=== PATIENT | male | born 1995 | race Caucasian/White ===

== ENCOUNTER 2019-04-10 11:34 | Emergency (ER) | payer MEDICAID, SELFPAY ==
[2019-04-10 11:35] VITALS: BP 126/83; PULSE 95; RESP 17; TEMP 36.7; O2SAT 100; BMI 20.5
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
--- NOTE | 2019-04-10 13:06 | ED.DEP ---
ED Disposition - Plan for ED Patient: Disposition: Home or Assisted Living Instructions: LACERATION, Scalp Referrals: Yousuf Hannah MD [Primary Care Provider] - 10 Day for suture removal Additional Instructions: Ice to decrease pain and swelling. Tylenol and Motrin for pain. Wash carefully and do not scrub hard against the willy you may pull them out. The willy should be removed in about 10 days. Return if severe headache or vomiting. You may have a mild headache or even mild nausea from the head injury.
== END 2019-04-10 13:17 | disposition home or self-care (01) ==
PROVIDERS: Emergency Provider Emergency Medicine; Family Provider Family Medicine; PCP Family Medicine
DX: S01.01XA Laceration without foreign body of scalp, initial encounter (principal); W20.8XXA Other cause of strike by thrown, projected or falling object, initial encounter; Y93.H1 Activity, digging, shoveling and raking; Y92.89 Other specified places as the place of occurrence of the external cause; Y99.8 Other external cause status
CPT/HCPCS: 12002; 99284

== ENCOUNTER 2020-03-27 14:56 | Emergency (ER) | payer MEDICAID, SELFPAY ==
[2020-03-27 14:57] VITALS: BP 130/76; PULSE 93; RESP 18; TEMP 36; BMI 19.3
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
--- NOTE | 2020-03-27 15:09 | CT_ITS ---
STUDY: CT FACIAL BONES WITHOUT CONTRAST REASON FOR EXAM: Male, 24 years old. Injury facial pain RADIATION DOSAGE (If Supplied By Facility): CTDIvol = ( 29.38 ) mGy, DLP = ( 591.53 ) mGycm TECHNIQUE: The patient was scanned in a multi detector CT scanner. Sagittal and coronal images were reconstructed. Individualized dose optimization techniques were used for this CT. COMPARISON: None. FINDINGS: Skull base is intact. Facial bones are intact. Orbits are normal. Paranasal sinuses are clear. Soft tissues of the face are unremarkable. Upper airway is patent. CT/Sinus/Facial Bone IMPRESSION: 1. No acute facial fracture. Normal CT face. Electronically Signed: Kisha Dalton, at 15:24 EST Tel , Service support ,
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
[2020-03-27 16:02] VITALS: RESP 15
--- NOTE | 2020-03-27 19:12 | ED.RN ---
patient called in asking about pain medicine. Dr. Cisse to write prescription at this time for patient to roll picker. Patient made aware
== END 2020-03-27 16:03 | disposition home or self-care (01) ==
LOC: ED 15:33
PROVIDERS: Emergency Provider Emergency Medicine; PCP Family Medicine
DX: S82.045A Nondisplaced comminuted fracture of left patella, initial encounter for closed fracture (principal); S00.83XA Contusion of other part of head, initial encounter; W21.89XA Striking against or struck by other sports equipment, initial encounter; Y93.89 Activity, other specified; Y92.830 Public park as the place of occurrence of the external cause; Y99.8 Other external cause status
CPT/HCPCS: 70486; 73562; 99284

== ENCOUNTER → 2020-03-31 17:46 | Outpatient (CLI) | payer MEDICAID, SELFPAY ==
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
--- NOTE | 2020-03-31 17:50 | CT_ITS ---
STUDY: CT LEFT KNEE WITHOUT CONTRAST REASON FOR EXAM: Male, 24 years old. Left knee injury 4 days ago, patella fracture. 3D recons performed. RADIATION DOSAGE (If Supplied By Facility): CTDIvol = ( 15.35 ) mGy, DLP = ( 499.60 ) mGycm TECHNIQUE: Transaxial CT imaging of the knee was performed. Coronal and sagittal images were reformatted. Individualized dose optimization techniques were used for this CT. COMPARISON: None. FINDINGS: Normal medial femoral condyle and medial tibial plateau. There is preservation of the articular joint space of the medial knee compartment. Normal lateral femoral condyle and lateral tibial plateau. There is preservation of the articular joint space of the lateral knee compartment. There is an acute comminuted inferior lateral patella facet fracture with mild separation of fracture fragments Normal proximal tibiofibular articulation. There is a hemorrhagic suprapatella bursal and joint effusion The quadriceps tendon is grossly normal. The patellar tendon is grossly normal. Normal Hoffa''s fat pad. Diffuse prepatellar soft tissue swelling is observed.. CT/Coronals Sag Multi Obl 3-D Rec IMPRESSION: Acute comminuted inferior lateral patella facet fracture with mild separation of fracture fragments and associated hemorrhagic effusion Electronically Signed: Rehan Medina MD at 20:07 EST , Service support ,
== END ==
PROVIDERS: PCP Family Medicine; Referring Provider Orthopaedic Surgery; Visit Provider Orthopaedic Surgery
DX: S82.002A Unspecified fracture of left patella, initial encounter for closed fracture (principal)
CPT/HCPCS: 73700; 76377

== ENCOUNTER 2020-04-06 11:31 | Day surgery (SDC) | payer MEDICAID, SELFPAY ==
[2020-04-06] VITALS (8 sets, daily range): BP systolic 122–144; BP diastolic 64–95; PULSE 96–122; RESP 16–18; TEMP 36.7–38; O2SAT 97–100; BMI 19.3
--- NOTE | 2020-04-06 13:07 | RAD_ITS ---
STUDY: X-RAY - LEFT KNEE REASON FOR EXAM: ORIF left patella. TECHNIQUE: 4 fluoroscopic images of the knee. COMPARISON: Radiographs 03/19/2020. FINDINGS: There are 4 orthopedic screws transfixing a patellar fracture in anatomical alignment and position. 91.7 seconds of fluoroscopy time was used. Electronically Signed: Yang Pineda MD at 15:30 EST Tel , Service support , RAD/Knee 1 or 2 Views
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
--- NOTE | 2020-04-06 13:15 | DCINST_ITS ---
Discharge Diet: No Restrictions - knee locked in extension, ttwb left leg, ankle pumps, ice knee, elevate toes above nose, call with concerns, Discharge Activity: May Not Drive May shower in (days): 1 Ice area for (Minutes): 20 - Every hour while awake. Weight Bearing Status: Weight bearing as tolerated Keep extremity elevated above heart level: Operative Extremity Call your doctor if your incision/area has: Continuous Slow Oozing, Sudden Increased Bleeding, Increased Pain/ Swelling, Increased Redness, Foul Smelling Discharge Call your doctor if you observe: Fever of 101 or Higher, Coldness, Increased Pain, Numbness or Tingling, Change in Color, Calf discomfort Allergies/Adverse Reactions: Allergies Penicillins Allergy (Verified 04/06/20 11:57) Anaphylaxis Sulfa (Sulfonamide Antibiotics) Allergy (Verified 04/06/20 11:57) Rash Medications to take at Discharge Ibuprofen [Motrin] 400 mg PO Q4H PRN PRN 04/05/20 Oxycodone HCl/Acetaminophen [Percocet 5-325 mg Tablet] 1 ea PO PRN PRN 04/05/20 Primary Care Physician: Yousuf Hannah MD [Primary Care Provider] - Test Results: Test results from this visit will be discussed in further detail at your follow- up appointment, if applicable. Please Follow Up With: Nicci Arcos, - [phone]
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
== END 2020-04-06 17:32 | disposition home or self-care (01) ==
LOC: SDC 11:32 → AC 11:33
PROVIDERS: PCP Family Medicine; Referring Provider Orthopaedic Surgery; Visit Provider Orthopaedic Surgery
PROC: (CPT 27524; principal; 2020-04-06 12:45)
DX: S82.045A Nondisplaced comminuted fracture of left patella, initial encounter for closed fracture (principal); Z20.828 Contact with and (suspected) exposure to other viral communicable diseases; V09.9XXA Pedestrian injured in unspecified transport accident, initial encounter; Y93.51 Activity, roller skating (inline) and skateboarding; Y92.89 Other specified places as the place of occurrence of the external cause; Y99.8 Other external cause status
CPT/HCPCS: 27524; 73560; 76000; 87426; C1713; C9803; J2405

== ENCOUNTER 2021-02-21 12:38 | Emergency (ER) | payer MEDICAID, SELFPAY ==
[2021-02-21 12:39] VITALS: BP 124/85; PULSE 106; RESP 20; TEMP 36.2; O2SAT 100; BMI 19.1
[2021-02-21 12:53] VITALS: BP 124/85; PULSE 106; RESP 20; TEMP 36.2; O2SAT 100
--- NOTE | 2021-02-21 13:37 | EX.ED.DYSGE1 ---
HPI History of Present Illness Chief Complaint: Flank Pain Informant: patient Onset/Context/Timing Onset: Today Context: Sudden Onset Timing: Continuous Quality: Sharp Location: Left flank Worsened by: Certain movements Relieved by: Bending over Narrative Narrative: Patient presents with left flank and low back pain that began today. Patient states it began rather suddenly while he was driving. Patient states his pain is sharp. Patient states it is localized to the left flank area. Patient states it is worse with certain movements but better when he bends over. Patient denies any dysuria or hematuria. Patient states he made himself vomit earlier today but did not really have any nausea. Patient does admit to some dysuria. Patient also admits to some subjective chills but denies any fevers. PFSH PFSH Medical History no medical history no medical history Home Medications NK 02/21/21 [History Last Taken Unknown] Allergy/AdvReac Type Severity Reaction Status Date / Time Penicillins Allergy Anaphylaxis Verified 02/21/21 13:19 Sulfa (Sulfonamide Allergy Rash Verified 02/21/21 13:19 Antibiotics) Surgical History (Updated 02/21/21 @ 13:[address] Davion Wilson DO) S/P ORIF (open reduction internal fixation) fracture Surgical History no surgical history Social History Smoking Status: Never smoker ROS ROS ED Constitutional Constitutional ED: Reports chills and subjective; Denies fever(s) Eyes Eyes: Denies blurry vision or change in vision ENT ENT ED: Denies rhinorrhea or sore throat Cardiovascular Cardiovascular: Denies chest pain or palpitations Respiratory/Chest Respiratory/Chest: Denies cough or dyspnea Gastrointestinal Gastrointestinal: Reports vomiting; Denies nausea Genitourinary Genitourinary ED: Reports dysuria; Denies hematuria Musculoskeletal Musculoskeletal: Reports back pain; Denies neck pain Integumentary Denies abscess or rash Neurologic Neurologic: Denies headache(s) or weakness Allergic/Immunologic Allergic/Immunologic ED: Denies mouth swelling or urticaria EXAM Physical Exam Const Vital Signs: 02/21/21 12:39 02/21/21 12:53 02/21/21 14:43 Temperature 97.2 F L 97.2 F L Temperature Source Temporal Temporal Pulse Rate 106 H 106 H Respiratory Rate 20 H 20 H 16 Blood Pressure 124/85 H 124/85 H Blood Pressure Mean 98 98 Pulse Ox 100 100 Oxygen Delivery Method Room Air Room Air Positive well nourished and well developed General Appearance ED: well developed HEENT Reports moist mucous membranes Neck supple and no JVD Resp normal respiratory effort and clear to auscultation bilaterally Cardio regular rate, regular rhythm and no murmurs GI normal to inspection, nondistended, normoactive bowel sounds and non-tender Palpation: soft Back/Spine General Back: CVA tenderness left Extremity normal to inspection General Extremety ED: Negative for edema or tenderness General Extremity: Negative for edema Neuro oriented x3, CN's II-XII intact bilaterally and no sensory deficits noted Sensorium / Orientation: alert Motor Exam: strength 5/5 throughout Psych mental status grossly normal Skin no rashes or lesions noted MDM MDM MDM Narrative Medical decision making narrative: Patient given IV fluids, morphine, Zofran, and Toradol here. CBC shows leukocytosis 17.5. Comprehensive metabolic profile was within normal limits. Lipase was normal. Urinalysis shows 25-50 red blood cells with occult blood of 250. There is no evidence of urinary tract infection. CT scan of the abdomen and pelvis was obtained. There is some minimal fullness of the left renal collecting system with a 3 mm calculus at the base of the bladder. This may represent a recently passed ureteral calculus. This was interpreted by the radiologist and reviewed by myself. Patient is feeling better on reevaluation. Patient was advised of his findings. Patient was instructed to drink plenty of fluids. Patient was instructed to follow-up with his primary care physician in 5 to 7 days. Patient understood and was agreeable with the plan. All questions were answered. Lab Data Attestation: I reviewed the patient's lab results. Labs: Laboratory Results - last 24 hr 02/21/21 02/21/21 02/21/21 13:15 13:15 14:22 WBC 17.5 H RBC 5.37 Hgb 16.3 Hct 48.0 MCV 89.4 MCH 30.4 MCHC 34.0 RDW Std Deviation 41.1 RDW Coeff of [place] 12.6 Plt Count 185 MPV 12.2 H Immature Gran % (Auto) 0.300 Neut % (Auto) 90.5 H Lymph % (Auto) 5.1 L [place] % (Auto) 3.6 Eos % (Auto) 0.0 Baso % (Auto) 0.5 Absolute Neuts (auto) 15.9 H Absolute Lymphs (auto) 0.89 Nucleated RBC % 0 Sodium 139 Potassium 3.8 Chloride 103 Carbon Dioxide 28.0 Anion Gap 8 BUN 14 Creatinine 1.05 Estim Creat Clear Calc 92.18 Est GFR (MDRD) Af Amer 110 Est GFR (MDRD) Non-Af 91 BUN/Creatinine Ratio 13.3 Glucose 95 Calcium 10.1 Total Bilirubin 0.80 AST 11 L ALT 20 Alkaline Phosphatase 57 Total Protein 7.9 Albumin 4.8 Globulin 3.1 Albumin/Globulin Ratio 1.5 Lipase 54 L Urine Color Yellow Urine Clarity Sl. Cloudy Urine pH 7.0 Ur Specific [place] 1.010 Urine Protein 15 H Urine Glucose (UA) Normal Urine Ketones 15 H Urine Occult Blood 250 H Urine Nitrite Negative Urine Bilirubin Negative Urine Urobilinogen Normal Ur Leukocyte Esterase Negative Urine RBC 25-50 SEEN Urine WBC 0 SEEN Ur Squamous Epith Cells 0 SEEN Urine Bacteria 1+ Urine Mucus 0 SEEN Radiography Diagnostic Testing: Clinical Impression(s) from Imaging Studies Abdomen/Pelvis CT 02/21/21 13:38 IMPRESSION: Minimal fullness of the left renal collecting system with a 3 mm calculus at the base of the bladder on the right side. This may represent a recently passed ureteral calculus. Electronically Signed: Tha Ho MD at 14:19 EDT , Service support , Discharge Plan Triage Chief Complaint: Flank Pain Other Complaint: Back ED Provider: Davion Wilson Dx/Rx/DC Orders Clinical Impression: Left ureteral calculus Instructions: ED Kidney Stone, Passed Prescriptions: No Action NK RF: 0 Primary Care Provider: Yousuf Hannah Referrals: Yousuf Hannah MD [Primary Care Provider] - 3-5 Days Disposition Disposition: Home, Self Care
--- NOTE | 2021-02-21 13:38 | CT_ITS ---
STUDY: CT ABDOMEN AND PELVIS WITHOUT CONTRAST REASON FOR EXAM: Male, 25 years old. Left flank pain RADIATION DOSAGE (If Supplied By Facility): CTDIvol = ( 5.16 ) mGy, DLP = ( 249.10 ) mGycm TECHNIQUE: Transaxial images were obtained from the dome of the diaphragm to the symphysis pubis without oral contrast, and without intravenous contrast. Sagittal and coronal images were reconstructed. Individualized dose optimization techniques were used for this CT. COMPARISON: None. FINDINGS: The visualized lung bases are unremarkable. The visualized portions of the heart are within normal limits. Normal liver. Normal gallbladder and extrahepatic biliary system. Normal spleen. Normal pancreas. Normal bilateral adrenal glands. Normal right kidney. There is minimal fullness of the left renal pelvis. Normal visualized stomach. Normal small intestine. Normal colon. The appendix is visualized and appears normal. Normal abdominal aorta. Normal inferior vena cava. Normal retroperitoneum. A 3 mm calculus is seen at the base of the bladder on the right side suggestive of recently passed ureteral calculus. Normal abdominal wall. Normal osseous structures. CT/Abdomen/Pelvis without Cont IMPRESSION: Minimal fullness of the left renal collecting system with a 3 mm calculus at the base of the bladder on the right side. This may represent a recently passed ureteral calculus. Electronically Signed: Tha Ho MD at 14:19 EDT , Service support ,
[2021-02-21 13:52] LABS: Absolute Lymphocyte Count 0.89 X10^3/uL (0.83-4.51); Absolute Neutrophil Count 15.9 X10^3/uL (2.0-7.7); Basophil# 0.08 X10^3/uL; Basophil% 0.5 % (0-1); Hemoglobin 16.3 g/dL (13.0-16.5); Lymphocyte # 0.89 X10^3/ul (0.83-4.51); Lymphocyte % 5.1 % (19-41); Mean Corpuscular Hgb 30.4 pg (27.0-32.0); Mean Corpuscular Volume 89.4 fL (80-94); Mean Platelet Vol. 12.2 fl (6.2-12.0); Monocyte# 0.63 X10^3/uL; Monocyte% 3.6 % (0-10); NRBC Flagged by Analyzer 0 % (0-5); Neutrophil # 15.85 X10^3/uL (2.7-7.7); Neutrophil % 90.5 % (47-70); Platelet Count 185 K/mm3 (150-450); RBC Distribution Width CV 12.6 % (11.6-14.6); RBC Distribution Width SD 41.1 fl (35.1-43.9); Red Blood Count 5.37 M/mm3 (4.6-6.2); White Blood Count 17.5 K/mm3 (4.4-11.0)
[2021-02-21] MEDS: 0.9% Normal Saline 1,000 ML 1000 ML IV (13:56)
[2021-02-21 14:09] LABS: ALB/GLOB Ratio 1.5 RATIO (0.9-2.4); AST(SGOT) 11 U/L (15-37); Alanine Aminotransfer ALT/SGPT 20 U/L (16-61); Albumin, Serum 4.8 g/dL (3.2-5.0); Alkaline Phosphatase 57 U/L (45-117); Anion Gap 8 (5-15); BUN 14 mg/dL (7-18); BUN/Creat Ratio 13.3 RATIO (10-20); Calcium,Total 10.1 mg/dL (8.5-10.1); Chloride 103 mmol/L (98-107); Creatinine, Serum 1.05 mg/dL (0.70-1.30); EST Glomerular Filtration Rate 91 mL/min (>60); Est Glom Filt Rate - Afr Amer 110 mL/min (>60); Estimated Creatinine Clearance 92.18 ml/min; Globulin 3.1 g/dL (2.2-4.2); Glucose 95 mg/dL (74-106); Lipase 54 U/L (73-393); Potassium 3.8 mmol/L (3.5-5.1); Protein, Total 7.9 g/dL (6.4-8.2); Sodium Level 139 mmol/L (136-145)
[2021-02-21 14:27] LABS: Mucous, Urine 0 SEEN /hpf (<or=2+); Squamous Epithelial Cells - UA 0 SEEN /hpf (0-5); White Blood Cells 0 SEEN /hpf (0-5)
[2021-02-21 14:34] LABS: Color, Urine Yellow (Yellow); Glucose, Dipstick Normal (Normal); Ketone-Dipstick 15 mg/dl (Negative); Leukocyte Esterase-Dipstick Negative /ul (Negative); Nitrite-Dipstick Negative (Negative); Occult Blood-Urine 250 /ul (Negative); Protein-Dipstick 15 mg/dl (Negative); Urine Bilirubin Dipstick Negative (Negative); Urine Clarity Sl. Cloudy (Clear); Urine Urobilinogen Normal (Normal)
[2021-02-21 14:41] LABS: Bacteria 1+ /hpf (None Seen); Red Blood Cells-Urine 25-50 SEEN /hpf (0-5)
[2021-02-21 14:43] VITALS: RESP 16
== END 2021-02-21 15:24 | disposition home or self-care (01) ==
PROVIDERS: Emergency Provider Emergency Medicine; PCP Family Medicine
DX: N20.1 Calculus of ureter (principal)
CPT/HCPCS: 74176; 80053; 81001; 83690; 85025; 96361; 96374; 96375; 99282; J7030; A4216; J2405